=== PATIENT | male | born 1970 | race Caucasian/White ===

== ENCOUNTER 2025-07-15 07:48 | Day surgery (SDC) | payer OTHER, SELFPAY ==
--- OUTSIDE RECORDS SUMMARY | 2024-06-29 05:10 | XMS_ITS ---
Author Organization [facility] Address [address] [place] [phone] Care Team Providers Care Public Health Nurse Name Role Phone Peter Story Primary Care Provider UnavailGagan Diehl [facility] [phone] REASON FOR VISIT Patient presents today for an ulcerative pancolitis Encounters Encounter Location Date Provider Diagnosis [facility] [address] [facility] [address] [place] [phone] 06/29/2024 Gagan Dalton Plan Of Treatment Next Appt Details Provider Name:Gagan Dalton , 07/15/2025 08:40:00 AM, [address] [place] [address] , [place], [place], [phone], Progress Notes * BROOKE POOLDOB: (54 yo M)Acc No.[id number]:06/29/2024 Progress Notes Patient: José BROOKE FRIEDMAN Provider: Regina Dalton MD :1970 A ge:53 Y S ex:Male Date:06/29/2024 Address:[address] [place], [place] [id number] Pcp:Peter Story Subjective: * Chief Complaints: * 1 . Patient presents today for an ulcerative pancolitis. * Medical History: Objective: * Vitals: Assessment: Plan: * Treatment: * * The named appointment provid er may or may not be the originator of this progress note, and it is not deemed complete until electronically signed by the appointment provider. Sign off status: Pending * Provider: Regina Dalton MD Date: 06/29/2024 Generated for Carrillo acevedo/Daniel/Ana Laura on: 07/07/2025 06:20 PM EDT
--- OUTSIDE RECORDS SUMMARY | 2024-11-02 06:10 | XMS_ITS ---
Author Organization [facility] Address [address] [place] [phone] Care Team Providers Care Aviation Electrician Name Role Phone Peter Story Primary Care Provider UnavailGagan Diehl [facility] [phone] REASON FOR VISIT Patient presents today for ulcerative pancolitis Encounters Encounter Location Date Provider Diagnosis [facility] [address] [facility] [address] [place] [phone] 11/02/2024 Gagan Dalton Plan Of Treatment Next Appt Details Provider Name:Gagan Dalton , 07/15/2025 08:40:00 AM, [address] [place] [address] , [place], [place], [phone], Progress Notes * BROOKE POOLDOB: (54 yo M)Acc No.[id number]:11/02/2024 Progress Notes Patient: José BROOKE FRIEDMAN Provider: Regina Dalton MD :1970 A ge:54 Y S ex:Male Date:11/02/2024 Address:[address] [place], [place] [phone] Pcp:Peter Story Subjective: * Chief Complaints: * 1 . Patient presents today for ulcerative pancolitis. * Medical History: Objective: * Vitals: Assessment: Plan: * Treatment: * * The named appointment provid er may or may not be the originator of this progress note, and it is not deemed complete until electronically signed by the appointment provider. Sign off status: Pending * Provider: Regina Dalton MD Date: 0 11/02/2024 Generated for Carrillo acevedo/Daniel/Ana Laura on: 0 07/07/2025 06:20 PM EDT
--- OUTSIDE RECORDS SUMMARY | 2025-03-02 10:20 | XMS_ITS ---
Author Organization [facility] Address [address] [place] [address] Care Team Providers Care Knit Goods Washer Name Role Phone Peter Story Primary Care Provider UnavailGagan Diehl [phone] Encounters Encounter Location Date Provider Diagnosis [facility] [address] [place] [address] 03/02/2025 Gagan Dalton Plan Of Treatment Next Appt Details Provider Name:Gagan Dalton , 07/15/2025 08:40:00 AM, [address] [place] [address] , [place], [place], [phone], Progress Notes * BROOKE POOLDOB: (54 yo M)Acc No.[id number]:03/02/2025 Progress Notes Patient: José BROOKE FRIEDMAN Provider: Regina Dalton MD :1970 A ge:54 Y S ex:Male Date:03/02/2025 Address:[address] [place], [place] [phone] Pcp:Peter Story Subjective: * Chief Complaints: * * Medical History: Objective: * Vitals: Assessment: Plan: * Treatment: * * The named appointment provid er may or may not be the originator of this progress note, and it is not deemed complete until electronically signed by the appointment provider. Sign off status: Pending * Provider: Regina Dalton MD Date: 0 03/02/2025 Generated for Carrillo acevedo/Daniel/Erinitting on: 0 07/07/2025 06:20 PM EDT
--- OUTSIDE RECORDS SUMMARY | 2025-07-07 18:20 | XMS_ITS | Patient Health Record ---
Author Organization [facility] Address [address] [place] [phone] Care Team Providers Care Process Operator Name Role Phone Peter Story Primary Care Provider Gagan Napoles Unavailable [phone] Allergies Allergen (clinical drug ingredient) Drug/Non Drug Allergy documented on EMR Reaction Allergy Type Onset Date Status Penicillin Unknown Drug Allergy Active Reason For Referral No Information Medications Medication SIG (Take, Route, Frequency, Duration) Notes Start Date End Date Status Diphenoxylate-Atropi ne 2.5-0.025 MG TAKE ONE TO TWO TABLETS BY MOUTH FOUR TIMES A DAY NEEDED FOR DIARRHEA for 13 08/15/2024 Active Ibuprofen as needed Not-Taking predniSONE 5 MG 8 tabs QD x 1 week, then 6 tabs QD x 1 week, and then a 5mg(1 tab) per week taper. Orally Once a day for 49 days Finished in spring02/07/2020 Not-Taking Mesalamine ER 0.375 GM TAKE FOUR CAPSULES BY MOUTH EVERY DAY IN THE MORNING for 30 Active Multivitamin Active ZyrTEC Allergy 10 MG 1 tablet Orally Once a day for 30 day(s) Active Immunizations Vaccine Route Administration Date Status Comme nts Influenza Unknown 08/20/2018 Administered Influenza Unknown 07/13/2019 Administered Influenza Unknown 08/23/2020 Administered Influenza Unknown 07/13/2021 Administered Influenza Unknown 07/07/2024 Administered Social History AUDIT-C (Standard) Question Answer Notes Did you have a drink contain ing alcohol in the past year? Yes How often did you have a dri nk containing alcohol in the past year? 2 to 4 times a month (2 points) How many drinks did you have on a typical day when you were drinking in the past year? 1 or 2 drinks (0 point) How often did you have six o r more drinks on one occasion in the past year? Never (0 point) Points 2 Interpretation Negative Section Notes: Nonsmoker; no sig. alcohol Dairy increases GI symptoms Nonsmoker; no sig. alcohol Dairy increases GI symptoms Nonsmoker; no sig. alcohol Dairy increases GI symptoms Nonsmoker; no sig. alcohol Dairy increases GI symptoms Nonsmoker; no sig. alcohol Dairy increases GI symptoms Nonsmoker; no sig. alcohol Dairy increases GI symptoms Nonsmoker; no sig. alcohol Dairy increases GI symptoms Nonsmoker; no sig. alcohol Dairy increases GI symptoms Nonsmoker; no sig. alcohol Dairy increases GI symptoms Nonsmoker; no sig. alcohol Dairy increases GI symptoms Nonsmoker; no sig. alcohol Dairy increases GI symptoms Problems Problem Type SNOMED Code ICD Code Onset Dates Problem Status W/U Status Risk Notes Problem Colon cancer screening (778779367) Colon cancer screening (Z12.11) Active confirmed Problem 54086079 Diarrhea (R19.7) Active confirmed Problem 412391932 Ulcerative pancolitis without complication (K51.00) Active confirmed Problem 72454902 Diarrhea, unspecified type (R19.7) Active confirmed Vital Signs Temperature 97.7 degrees Fahrenheit 04/13/2025 Blood pressure diastolic 01 mm Hg 04/13/2025 Height 74 in 04/13/2025 Blood pressure systolic 001 mm Hg 04/13/2025 Weight 229.2 lbs 04/13/2025 BMI 29.42 kg/m2 04/13/2025 Procedures Procedure Date Ordered Date Performed Result Body Sit e COLONOSCOPY 04/13/2025 N/A Encounters Encounter Location Date Provider Diagnosis [facility] [address] [place] [phone] 04/13/2025 Gagan Dalton Ulcerative pancoliti s without complication K51.00 and Colon cancer screening Z12.11 [facility] [address] [place] [phone] 11/02/2024 Gagan Dalton Assessments Encounter Date Diagnosis (ICD Code) Assessment Notes Treatment Notes Treatment Clinical Notes Section Notes 04/13/2025 Ulcerative pancolitis without complication (ICD-10 - K51.00) Overall, Corby appears quite well. His ulcerative colitis seems to be doing fairly well on his current regimen. However, he does report that he does think that things could be somewhat better in regard to his bowel movements and consistency of the stool. I did recommend a colonoscopy for evaluation both in regard to the activity of the colitis as well as for screening purposes given that he has had the colitis for about 10 years now and his last colonoscopy was about 5 years ago. We did review the rationale for the colonoscopy in regard to colorectal cancer prevention and/or early detection. Full consent has been obtained from him for this, including risks of bleeding and perforation. The procedure will be done with monitored anesthesia care. In the meantime I did advise him to continue his current regimen of the mesalamine and Lomotil. Depending upon the results of the colonoscopy in regard to the activity of the colitis and his symptomatology, we could always decide to change things at some point by adding a biologic agent if need be. Corby was comfortable with this plan. Thank you again for allowing me to participate in Corby's care. I shall continue to keep you advised of his progress.. 04/13/2025 Colon cancer screening (ICD-10 - Z12.11) Overall, Corby appears quite well. His ulcerative colitis seems to be doing fairly well on his current regimen. However, he does report that he does think that things could be somewhat better in regard to his bowel movements and consistency of the stool. I did recommend a colonoscopy for evaluation both in regard to the activity of the colitis as well as for screening purposes given that he has had the colitis for about 10 years now and his last colonoscopy was about 5 years ago. We did review the rationale for the colonoscopy in regard to colorectal cancer prevention and/or early detection. Full consent has been obtained from him for this, including risks of bleeding and perforation. The procedure will be done with monitored anesthesia care. In the meantime I did advise him to continue his current regimen of the mesalamine and Lomotil. Depending upon the results of the colonoscopy in regard to the activity of the colitis and his symptomatology, we could always decide to change things at some point by adding a biologic agent if need be. Corby was comfortable with this plan. Thank you again for allowing me to participate in Corby's care. I shall continue to keep you advised of his progress.. Plan Of Treatment Pending Test Test Name Order Date COLONOSCOPY 04/13/2025 CHEM 7 PROFILE 07/01/2023 LIVER PROFILE 07/01/2023 CBC w DIFF 07/01/2023 Future Test Test Name Order Date COLONOSCOPY 11/16/2015 COLONOSCOPY 06/23/2019 Next Appt Details Provider Name:Gagan Dalton , 07/15/2025 08:40:00 AM, [address] [place] [address] , [place], [place], [phone], Insurance Providers Payer Name Payer Address Payer Phone Subscriber Number Group Number Insured Name Patient Relationship to Insured Coverage Start Date Coverage End Date [facility] [address] [address] [place] [address] [id number] [phone] [employer] POOL Self - patient is the insured Medical (General) History Medical History History ICD Code Seasonal allergies Denies CT,DM,CVA,Lung disease,renal dise ase Ulcerative colitis diagnosed in January 2016-this was a mild pancolitis based on the colonoscopy and biopsies- previous laboratories for celiac disease were negative- he was put on a trial of Lialda and Apriso without any benefit- - he has been using Lomotil which gives him the most benefit- - he had negative laboratories for celiac disease- - he tried budesonide and cholestyramine powder but without any improvement either. He had a colonoscopy in January of 2020 which revealed a relatively mild but diffuse colitis from the sigmoid colon to the cecum and with some mild changes of inflammation in the very distal ileum. Biopsies in the ileum and throughout the colon, including the rectum, revealed some mild changes of inflammation but no dysplasia nor granulomas. He took 8 weeks of a prednisone taper after that with a dramatic improvement in his symptoms Negative celiac disease labs in 2015 Surgical History Surgery Date(Month/Year) cyst removed from hip and thigh 2011
[2025-07-13 14:27] VITALS: BMI 29.4
--- NOTE | 2025-07-14 10:12 | HO.ANESPROP2 ---
Documented by User: Libertad Chapman NP 07/14/25 10:13 HPI - Anesthesia Eval Consult details Narrative: 55yo M for Colonoscopy PMFSH Past Medical History Medical History Ulcerative colitis Surgical History Surgical History Hx of excision of mass H/O colonoscopy Social History Social History Are you a primary healthcare administration internship to a significant other at home: No Do you presently have visiting nurse or other home services: No Patient Tobacco Use Status: Never used Tobacco Use of substances other than those prescribed or required for medical reasons: No Have you been hit, kicked, punched, or otherwise hurt by someone within the past year? If so, by whom?: No Are you DNR?: No Advance Directives: No Advance Directives Information Provided: Yes Poor oral hygiene: No Meds Allergies Allergy/AdvReac Type Severity Reaction Status Date / Time Penicillins Allergy Unknown Unknown Verified 07/15/25 07:59 Seasonal Allergies Allergy Unknown Unknown Verified 07/15/25 07:59 Home Medications ?Medication ?Instructions ?Recorded ?Confirmed ?Last Taken ?Type cetirizine 10 mg tablet (Zyrtec) 10 mg PO DAILY 07/13/25 07/13/25 Unknown History diphenoxylate-atropine 2.5 2 tab PO QID PRN Diarrhea 07/13/25 07/13/25 Unknown History mg-0.025 mg tablet mesalamine 0.375 gram 1.5 g PO QAM 07/13/25 07/13/25 Unknown History capsule,extended release 24 hr multivitamin 1 tab PO DAILY 07/13/25 07/13/25 Unknown History Exam Height,Weight and Vital Signs: Height 6 ft 2 in Weight 103.963 kg Assessment and Plan Assessment Anesthesia Assessment: Chart Reviewed Documented by User: Lali Palm MD 07/15/25 08:47 [facility] Past Medical History Medical History Ulcerative colitis Surgical History Surgical History Hx of excision of mass H/O colonoscopy History of Problems with Anesthesia: No Social History Social History Are you a primary healthcare administration internship to a significant other at home: No Do you presently have visiting nurse or other home services: No Patient Tobacco Use Status: Never used Tobacco Use of substances other than those prescribed or required for medical reasons: No Have you been hit, kicked, punched, or otherwise hurt by someone within the past year? If so, by whom?: No Are you DNR?: No Advance Directives: No Advance Directives Information Provided: Yes Poor oral hygiene: No Meds Allergies Allergy/AdvReac Type Severity Reaction Status Date / Time Penicillins Allergy Unknown Unknown Verified 07/15/25 07:59 Seasonal Allergies Allergy Unknown Unknown Verified 07/15/25 07:59 Home Medications ?Medication ?Instructions ?Recorded ?Confirmed ?Last Taken ?Type cetirizine 10 mg tablet (Zyrtec) 10 mg PO DAILY 07/13/25 07/13/25 Unknown History diphenoxylate-atropine 2.5 2 tab PO QID PRN Diarrhea 07/13/25 07/13/25 Unknown History mg-0.025 mg tablet mesalamine 0.375 gram 1.5 g PO QAM 07/13/25 07/13/25 Unknown History capsule,extended release 24 hr multivitamin 1 tab PO DAILY 07/13/25 07/13/25 Unknown History Exam Airway Mallampati Class: III TM Dist: >3cm Neck ROM: Full Loose/Missing/Broken Teeth: No Heart: RRR Lungs: CTA Assessment and Plan Assessment Anesthesia Assessment: Anesthesia Plan Discussed Final Anesthetic Review History of Problems with Anesthesia: No NPO: Yes ASA Class: II Final Preanesthetic Review: Meds/Allgs Chart Reviewed, Consent Obtained/Reviewed and Anes Risks/Benef Reviewed Patient Risk: Low Procedure Risk: Low Anesthetic Plan Anesthetic Plan: MAC: Disposition: Standard PACU
[2025-07-15 08:10] VITALS: BP 139/92; PULSE 79; RESP 14; TEMP 36.7; O2SAT 95; BMI 28.9
[2025-07-15] MEDS: Lactated Ringers 1,000 ML 100 ML IVCONT (08:21)
[2025-07-15 10:38] VITALS: BP 99/62; PULSE 67; RESP 18; TEMP 36.3; O2SAT 98
[2025-07-15 10:53] VITALS: BP 117/80; PULSE 78; RESP 18; TEMP 36.6; O2SAT 98
--- NOTE | 2025-07-15 11:25 | OP_ITS ---
DATE OF SERVICE: 07/15/2025 SURGEON: Gagan Dalton MD INDICATIONS: The patient presents for followup of long-standing ulcerative colitis and colorectal cancer screening. Full consent has been obtained from him for this, including risks of bleeding and perforation. PREOPERATIVE DIAGNOSIS: Ulcerative colitis. POSTOPERATIVE DIAGNOSIS: PROCEDURE PERFORMED: Colonoscopy to the cecum and terminal ileum with multiple hot snare polypectomies, biopsy and removal of polyps, placement of a single ultra resolution clip on the polypectomy site at 60 cm, and multiple biopsies. ESTIMATED BLOOD LOSS: COMPLICATIONS: ANESTHESIA: Medication used, monitored anesthesia care. ASSISTANTS: SPECIMENS: POSTOPERATIVE DIAGNOSES: Ulcerative colitis, colon polyps, rule out dysplasia. DESCRIPTION OF PROCEDURE: The patient was placed in the left lateral decubitus position. The digital rectal exam revealed no abnormalities and specifically no perianal disease. The [employer] video pediatric colonoscope was entered into the rectum and advanced easily to the cecum. Once in the cecum, I did visualize the cecal pouch with a normal-appearing ileocecal valve and appendiceal orifice. The cecal mucosa had a diffuse but mild colitis with some friability, edema, and 2 mm superficial ulcerations. The terminal ileum was cannulated and appeared normal. The scope was withdrawn back in the colon. The scope was then slowly withdrawn assessing all mucosal surfaces carefully. Preparation was excellent. Throughout the colon there were mucosal changes consistent with a mild ulcerative colitis with erythema, edema, and 2 mm ulcerations. This was not a complete pancolitis, but was noticed mainly in the ascending colon and descending colon. In the ascending colon, at 60 cm and at 40 cm were relatively flat, but raised polyps between 8 and 15 mm in size. These were all removed by hot snare polypectomy and recovered by suction. The 15 mm polyp was at 60 cm and a single ultra resolution clip was applied to the polypectomy site with good deployment and good hemostasis. All of the polypectomy sites appeared clean, without any sign of residual polyp nor bleeding. In the transverse colon were 3 less than 5 mm polyps, which were all biopsied and completely removed with a cold biopsy forceps. In the rectum was a carpet type lesion. This was in the proximal rectum. It appeared lobulated and consistent with either adenomatous and/or villous type tissue. It was not ulcerated. Two approximately 1 cm portions of it were removed with a hot snare polypectomy and the remainder was just biopsied. At this point, I did not feel it was amenable to endoscopic resection. The scope was retroflexed visualizing the distal rectum carefully which appeared normal and without any involvement of the polyp. There was no sign of any proctitis. Internal hemorrhoids were noted. I did obtain multiple biopsies in the ascending colon, transverse colon, descending colon, sigmoid colon, and rectum to rule out dysplasia as well. I also obtained multiple biopsies around the sites of the larger polyps in the ascending colon, 60 cm, and at 40 cm. The scope was withdrawn from the patient. He tolerated the procedure well and was returned to the recovery area in stable condition. IMPRESSION: 1. Multiple colon polyps. 2. History of ulcerative colitis. 3. Small internal hemorrhoids. PLAN: The results of the pathology will be checked. Further plans and further removal of the rectal polyp will be made depending upon the biopsy results. He was advised to stay off all aspirin and NSAIDs for least 2 weeks. He will continue his mesalamine for the time being, along with his Lomotil. Further plans for followup colonoscopy will also be made depending upon the biopsy results. This has been discussed with his fiancee. MD JIMMIE Galindo/BAR / [id number] SANDY
--- NOTE | 2025-07-15 12:30 | PM.OP ---
Brief Operative Note Date of Service: 07/15/25 Pre-op diagnosis: Ulcerative colitis, Screening Post-op diagnosis: other (Same, Colorectal polyps, Diverticulosis) Procedure: Colonoscopy to the cecum and TI with biopsies, bx/removal of polyps in Transverse colon, hot snare polypectomies, placement of 1 Ultra Resolution clip at 60cm Surgeon: Gagan Dalton MD Was an Hydrostatic Tubing Tester used for this Procedure?: No Estimated blood loss (mL): 5.00 Pathology: other (A. Polyp at 40cm B. Transverse colon polyps C. Ascending colon D. Ascending colon polyp E. Bx around the Ascending Colon polyp F. Transverse colon G. Descending colon H. Polyp at 60cm I. Bx around the polyp at 60cm J. Bx around polyp at 40cm K. Sigmoid colon L. Rectum M. Rectal polyp) Condition: stable Disposition: PACU
== END 2025-07-15 11:28 | disposition home or self-care (01) ==
PROVIDERS: PCP Family Medicine; Visit Provider Internal Medicine
PROC: 0DJD8ZZ Inspection of Lower Intestinal Tract, Via Natural or Artificial Opening Endoscopic (ICD-10-PCS; CPT 45378; principal; 2025-07-15 08:40)
DX: Z12.11 Encounter for screening for malignant neoplasm of colon (principal); K51.00 Ulcerative (chronic) pancolitis without complications; D12.2 Benign neoplasm of ascending colon; D12.6 Benign neoplasm of colon, unspecified; D12.8 Benign neoplasm of rectum; K51.40 Inflammatory polyps of colon without complications; K52.9 Noninfective gastroenteritis and colitis, unspecified; K64.8 Other hemorrhoids
CPT/HCPCS: 45385; 45380; 88305; J2704